=== PATIENT | female | born 1980 | race Caucasian/White ===

== ENCOUNTER 2016-12-13 01:28 | Emergency (ER) | payer OTHER ==
[2016-12-13 02:27] LABS: BASO % 0.6 % (0.0-1.0); EOS # 0.2 K/mm3 (0.0-0.50); EOS % 2.8 % (0.0-3.0); LARGE UNSTAINED CELL # 0.2 K/mm3 (0.0-0.4); LARGE UNSTAINED CELL % 2.3 % (0.0-4.0); LYMPH # 2.4 K/mm3 (1.5-4.5); MEAN CORPUSCULAR HEMOGLOBIN 29.7 pg (27.0-33.0); MEAN CORPUSCULAR HGB CONC 34.1 g/dl (32.0-36.5); MONO # 0.4 K/mm3 (0.0-0.8); NEUTROPHILS # 4.3 K/mm3 (1.8-7.7); NEUTROPHILS % 57.4 % (36.0-66.0); PLATELET COUNT, AUTOMATED 229 k/mm3 (150-450); RED CELL DISTRIBUTION WIDTH 12.4 % (11.5-14.5); WHITE BLOOD COUNT 7.4 K/mm3 (4.0-10.0)
[2016-12-13 02:30] LABS: INR 0.88
[2016-12-13 02:41] LABS: ANION GAP 8 MEQ/L (8-16); BLOOD UREA NITROGEN 13 MG/DL (7-18); CARBON DIOXIDE LEVEL 31 MEQ/L (21-32); CHLORIDE LEVEL 103 MEQ/L (98-107); CREATININE FOR GFR 0.78 MG/DL (0.55-1.02); GLOMERULAR FILTRATION RATE > 60.0 (>60); GLUCOSE, FASTING 118 MG/DL (70-105); POTASSIUM SERUM 3.7 MEQ/L (3.5-5.1); SODIUM LEVEL 142 MEQ/L (136-145); T UPTAKE 33 % (30-39); THYROXINE (T4) 14.3 UG/DL (4.5-12.0)
--- NOTE | 2016-12-13 03:16 | REP ---
Clinical: Chest pain . Comparison: None . Findings: The mediastinum and cardiac silhouette are stable and within normal limits for portable technique. The lung rodriguez are clear without acute consolidation, effusion, or pneumothorax. Skeletal structures are intact. Impression: No acute cardiopulmonary process or focal consolidation. Signed by Peterson Bullard MD 12/13/2016 03:08 A
--- NOTE | 2016-12-13 04:00 | REPUSA ---
CLINICAL HISTORY: Syncope. TECHNIQUE: Multiple axial brain CT scan sections were obtained from base to vertex without contrast a dministration. COMMENTS: The study shows normal configuration of sella turcica. There are no intra or extra-axial collections. There is no mass effect or midline shift. There is no evidence of hematoma formation. No hydrocephal us is present. No abnormal calcifications are noted. No significant abnormalities are seen either in the posterior fossa or supratentorial compartment. The sinuses and mastoid air cells are patent. IMPRESSION: No evidence of acute intracranial pathology. Thank you for your kind referral of this patient.
[2016-12-13] MEDS ORDERED: ISOVUE-370 76% 100ML VIAL (Q9967) As Ordered ONE (04:15)
--- NOTE | 2016-12-13 05:10 | REPUSA ---
CLINICAL HISTORY: Dyspnea, exclude PE. TECHNIQUE: Multiple incremental axial, coronal and oblique images are obtained from the thoracic inle t to the upper abdomen. Intravenous contrast material was administered as per pulmonary embolism prot ocol. COMMENTS: There is excellent opacification of pulmonary arterial system without evidence for pulmonary embolism . Aorta is of normal caliber without evidence for dissection or aneurysm. There is no evidence of pleural or parenchymal mass. Multifocal air trapping in the lungs with associ ated groundglass densities. There are no pleural effusions. There is no evidence of hilar or mediasti nal lymphadenopathy. The heart and great vessels are within normal limits. Images of the upper abdomen demonstrate no evidence of adrenal mass. The bony structures are free of lytic or blastic lesions. Enhancing lesions of the right hepatic lobe the largest measuring 4.5 cm. IMPRESSION: No evidence for pulmonary embolism. Multifocal air trapping in the lungs with associated groundglass densities. Thank you for your kind referral of this patient.
--- NOTE | 2016-12-13 06:04 | EDDOCDS ---
Nurse's Notes [facility] Name: Rebecca Yu Age: 36 yrs Sex: Female : 1980 Arrival Date: 12/13/2016 Time: 01:28 Bed 18 Private MD: Diagnosis: Volume depletion;Orthostatic hypotension Presentation: 12/13 01:39 Presenting complaint: Patient states: that prior to arrival when getting up to use the cz bathroom had a syncopal episode and had chest heaviness. Adult Sepsis Screening: The patient does not have new or worsening altered mentation. Patient's respiratory rate is less than 22. Systolic blood pressure is greater than 100. Patient has a qSOFA score of 0- Negative Sepsis Screen. Suicide/Homicide risk assessment- the patient denies having any suicidal and/or homicidal ideations and does not present with any other emotional, behavioral or mental health complaints. Status: Patient is not a director service or dependent. Transition of care: patient was not received from another setting of care. 01:39 Acuity: SHARONDA Level 2 01:39 Method Of Arrival: Walkin/Carried/Asstd Triage Assessment: 06:03 Pt Declines HIV testing. 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 levothyroxine 125 mcg Oral cap - PMHx: Hypothyroidism; - PSHx: Cesearean Section; Cholecystectomy; Thyroidectomy; - Social history: Smoking status: Patient states was never smoker of tobacco. No barriers to communication noted, The patient speaks fluent Kinyarwanda, Speaks appropriately for age. - Family history: Not pertinent. - : The pt / caregiver states he / she is not on anticoagulants. Home medication list is obtained from the patient. - Exposure Risk Screening:: None identified. Screenin:38 Screening information is obtained from the patient. Fall risk: No risks identified. jp6 Assistance ADL's: requires no assistance with activities of daily living. Abuse/DV Screen: The patient / caregiver reports he/she is: not in a situation that causes fear, pain or injury. Nutritional screening: No deficits noted. Advance Directives: Currently, there is no health care proxy. There is no active DNR order. There is no living will. home support is adequate. Assessment: 02:00 General: Appears in no apparent distress, uncomfortable, well developed, well jp6 nourished, Behavior is appropriate for age, cooperative, Reports left chest sided heaviness. Pain: Denies pain. 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 EENT: No deficits noted. Cardiovascular: Capillary refill < 3 seconds Heart tones S1 S2 Edema is absent. Rhythm is sinus tachycardia No ectopy. Respiratory: Airway is patent Respiratory effort is even, unlabored, Respiratory pattern is regular, symmetrical, Breath sounds are clear bilaterally. GI: No deficits noted. : No deficits noted. Derm: Skin is pink, warm & dry. Musculoskeletal: No deficits noted. 03:00 Reassessment: Patient appears in no apparent distress at this time. Patient states jp6 feeling better. General: Appears in no apparent distress, Behavior is appropriate for age, cooperative. Pain: Denies pain. Neurological: No deficits noted. EENT: No deficits noted. Cardiovascular: Capillary refill < 3 seconds Rhythm is sinus tachycardia No ectopy. Respiratory: Airway is patent Respiratory effort is even, unlabored, Respiratory pattern is regular, symmetrical. GI: No deficits noted. : No deficits noted. Derm: Skin is pink, warm & dry. 04:00 Reassessment: Patient states feeling better. Neurological: Level of Consciousness is jp6 awake, alert, Oriented to person, place, time. Cardiovascular: Rhythm is sinus rhythm No ectopy. Respiratory: Airway is patent Respiratory effort is even, unlabored, Respiratory pattern is regular, symmetrical. Derm: Skin is pink, warm & dry. 05:24 Reassessment: Patient appears in no apparent distress at this time. Patient states jp6 feeling better. Neurological: No deficits noted. Level of Consciousness is awake, alert, Oriented to person, place, time. Cardiovascular: Rhythm is sinus rhythm No ectopy. Respiratory: Airway is patent Respiratory effort is even, unlabored, Respiratory pattern is regular, symmetrical. Derm: Skin is pink, warm & dry. Vital Signs: 01:36 BP 173 / 91 (auto/); jp6 01:38 Pulse 92 MON; Pulse Ox 99% ; jp6 01:44 BP 173 / 91; Pulse 97; Resp 16; Pulse Ox 99% on R/A; Weight 90.72 kg; Height 5 ft. 9 cz in. (175.26 cm); 01:49 Temp 99(TE); cz 01:51 BP 154 / 76 (auto/); jp6 01:52 Pulse 96 MON; Pulse Ox 98% ; jp6 02:06 BP 161 / 85 (auto/); jp6 02:07 Pulse 96 MON; Pulse Ox 98% ; jp6 02:21 BP 154 / 85 (auto/); jp6 02:22 Pulse 98 MON; Pulse Ox 98% ; jp6 03:02 BP 149 / 86 LA Supine (auto/reg); Pulse 101; Pulse Ox 99% ; jp6 03:05 BP 159 / 95 LA Sitting (auto/reg); Pulse 101; jp6 03:08 BP 163 / 94 LA Standing (auto/reg); Pulse 121; jp6 03:21 BP 149 / 82 (auto/); jp6 03:22 Pulse 96 MON; Pulse Ox 98% ; jp6 03:36 BP 131 / 77 (auto/); jp6 03:37 Pulse 94 MON; Pulse Ox 98% ; jp6 03:51 BP 172 / 89 (auto/); jp6 03:51 Pulse 100 MON; Pulse Ox 97% ; jp6 04:06 BP 154 / 85 (auto/); jp6 04:07 Pulse 94 MON; Pulse Ox 97% ; jp6 04:21 BP 158 / 92 (auto/); jp6 04:24 Pulse 100 MON; Pulse Ox 97% ; jp6 04:36 BP 143 / 76 (auto/); jp6 04:40 Pulse 102 MON; Pulse Ox 99% ; jp6 04:51 BP 145 / 78 (auto/); jp6 04:52 Pulse 102 MON; Pulse Ox 99% ; jp6 05:06 BP 145 / 81 (auto/); jp6 05:07 Pulse 104 MON; Pulse Ox 99% ; jp6 05:53 BP 139 / 82; Pulse 100; Resp 18; Temp 99.3; Pulse Ox 99% on R/A; Pain 0/10; melvin 01:44 Body Mass Index 29.53 (90.72 kg, 175.26 cm) cz Vitals: 06:02 Glucose Measurement not ordered. Log In Time: December 13, 2016 at 01:36. jp6 ED Course: 01:29 Patient visited by Aggie Tompkins Reg. hs2 01:29 Patient moved to Waiting hs2 01:33 Patient moved to 18 sls1 01:34 Farnaz Barillas,RN is Primary Nurse. jp6 01:38 The patient / caregiver is instructed regarding the plan of care and ED course. Cardiac jp6 monitor on. Pulse ox on. NIBP on. 01:38 Inserted saline lock: 20 gauge in left forearm and blood collected. No procedures done jp6 that require assistance. 01:41 Triage Initiated cz 02:00 EKG done. (by ED staff). Reviewed by Herrera Parisi DO. melvin 02:05 Herrera Parisi DO is Attending Physician. cs11 02:05 Patient visited by Herrera Parisi DO. cs11 03:08 Patient visited by Lashawn Monterroso PCA. melvin 03:19 Chest, 1 View Returned. EDMS 03:51 Patient name changed from Rebecca\S\M\S\White\S\ to Rebecca\S\Mindy\S\White. EDMS 03:51 [facility] Payment Agreement was scanned into [employer] and attached to record. slh 04:10 Patient visited by Lashawn Monterroso PCA. melvin 04:20 CT Head Without Contrast Returned. EDMS 05:15 Patient visited by Lashawn Monterroso PCA. melvin 05:21 CT Chest Angio R/O PE Returned. EDMS 05:54 Patient visited by Lashawn Monterroso PCA. melvin Administered Medications: 03:18 Drug: NS 0.9% 1000 ml [sodium chloride 0.9 % intravenous solution] Route: IV; Rate: jp6 bolus; Site: right forearm; Intake: 06:01 PO: 0.00ml; IV: 1000.00ml (NS); Total: 1000.00ml. jp6 Output: 06:01 Urine: 600.00ml (Voided); Total: 600.00ml. jp6 Order Results: Lab Order: CBC with Diff; SPEC'M 12/13/16 01:49 Test: WHITE BLOOD COUNT; Value: 7.4; Range: 4.0-10.0; Units: K/mm3; Status: F Test: RED BLOOD COUNT; Value: 5.19; Range: 4.00-5.40; Units: M/mm3; Status: F Test: HEMOGLOBIN; Value: 15.4; Range: 12.0-16.0; Units: g/dl; Status: F Test: HEMATOCRIT; Value: 45.2; Range: 36.0-47.0; Units: %; Status: F Test: MEAN CORPUSCULAR VOLUME; Value: 87.0; Range: 80.0-96.0; Units: fl; Status: F Test: MEAN CORPUSCULAR HEMOGLOBIN; Value: 29.7; Range: 27.0-33.0; Units: pg; Status: F Test: MEAN CORPUSCULAR HGB CONC; Value: 34.1; Range: 32.0-36.5; Units: g/dl; Status: F Test: RED CELL DISTRIBUTION WIDTH; Value: 12.4; Range: 11.5-14.5; Units: %; Status: F Test: PLATELET COUNT, AUTOMATED; Value: 229; Range: 150-450; Units: k/mm3; Status: F Test: NEUTROPHILS %; Value: 57.4; Range: 36.0-66.0; Units: %; Status: F Test: LYMPH %; Value: 32.0; Range: 24.0-44.0; Units: %; Status: F Test: MONO %; Value: 5.0; Range: 0.0-5.0; Units: %; Status: F Test: EOS %; Value: 2.8; Range: 0.0-3.0; Units: %; Status: F Test: BASO %; Value: 0.6; Range: 0.0-1.0; Units: %; Status: F Test: LARGE UNSTAINED CELL %; Value: 2.3; Range: 0.0-4.0; Units: %; Status: F Test: NEUTROPHILS #; Value: 4.3; Range: 1.8-7.7; Units: K/mm3; Status: F Test: LYMPH #; Value: 2.4; Range: 1.5-4.5; Units: K/mm3; Status: F Test: MONO #; Value: 0.4; Range: 0.0-0.8; Units: K/mm3; Status: F Test: EOS #; Value: 0.2; Range: 0.0-0.50; Units: K/mm3; Status: F Test: BASO #; Value: 0.0; Range: 0.0-0.2; Units: K/mm3; Status: F Test: LARGE UNSTAINED CELL #; Value: 0.2; Range: 0.0-0.4; Units: K/mm3; Status: F Lab Order: MED Profile; SPEC'M 12/13/16 01:49 Test: GLUCOSE, FASTING; Value: 118; Range: 70-105; Abnormal: Above high normal; Units: MG/DL; Status: F Test: BLOOD UREA NITROGEN; Value: 13; Range: 7-18; Units: MG/DL; Status: F Test: CREATININE FOR GFR; Value: 0.78; Range: 0.55-1.02; Units: MG/DL; Status: F Test: GLOMERULAR FILTRATION RATE; Value: > 60.0; Range: >60; Status: F Test: SODIUM LEVEL; Value: 142; Range: 136-145; Units: MEQ/L; Status: F Test: POTASSIUM SERUM; Value: 3.7; Range: 3.5-5.1; Units: MEQ/L; Status: F Test: CHLORIDE LEVEL; Value: 103; Range: 98-107; Units: MEQ/L; Status: F Test: CARBON DIOXIDE LEVEL; Value: 31; Range: 21-32; Units: MEQ/L; Status: F Test: ANION GAP; Value: 8; Range: 8-16; Units: MEQ/L; Status: F Test: CALCIUM LEVEL; Value: 9.0; Range: 8.5-10.1; Units: MG/DL; Status: F Test Note: ; Units are mL/min/1.73 m2 Chronic Kidney Disease Staging per NKF: Stage I & II GFR >=60 Normal to Mildly Decreased Stage III GFR 30-59 Moderately Decreased Stage IV GFR 15-29 Severely Decreased Stage V GFR <15 Very Little GFR Left ESRD GFR <15 on 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 MARKETING ASSOCIATE Lab Order: Cardiac Marker Panel; SPEC'M 12/13/16 01:49 Test: CPK CREATINE PHOSPHOKINASE; Value: 81; Range: 26-192; Units: U/L; Status: F Test: CK-MB VALUE MASS; Value: 1.0; Range: 0.0-3.6; Units: NG/ML; Status: F Test: MB/CK RELATIVE INDEX; Value: 1.23; Range: < OR =4; Status: F Test: TROPONIN I; Value: < 0.02; Range: < 0.10; Units: NG/ML; Status: F Test Note: ; DIAGNOSIS CRITERIA MMB ng/ml Relative Index (RI) NON-AMI < or = 5 N/A SANCHEZ ZONE > 5 < or = 4 AMI > 5 > 4 Lab Order: Pt & Aptt; SPEC'M 12/13/16 01:49 Test: PROTHROMBIN TIME; Value: 12.0; Range: 12.3-14.5; Abnormal: Below low normal; Units: SECONDS; Status: F Test: INR; Value: 0.88; Status: F Test: PARTIAL THROMBOPLASTIN TIME; Value: 27.0; Range: 26.6-37.1; Units: SECONDS; Status: F Test Note: ; THERAPUTIC HUMAN INR VALUES INDICATIONS NORMAL RANGES PROPHYLAXIS/TREATMENT OF: VENOUS THROMBOSIS 2.0-3.0 PULMONARY EMBOLISM 2.0-3.0 PREVENTION OF SYSTEMIC EMBOLISM FROM: TISSUE HEART VALVES 2.0-3.0 ACUTE MYOCARDIAL INFARCTION 2.0-3.0 VALVULAR HEART DISEASE 2.0-3.0 ATRIAL FIBRILLATION 2.0-3.0 MECHANICAL VALVES(HIGH RISK) 2.5-3.5 RECURRENT MYOCARDIAL INFARCTION 2.5-3.5 Lab Order: Thyroid Profile; SPEC'M 12/13/16 01:49 Test: T UPTAKE; Value: 33; Range: 30-39; Units: %; Status: F Test: THYROXINE (T4); Value: 14.3; Range: 4.5-12.0; Abnormal: Above high normal; Units: UG/DL; Status: F Test: FREE THYROXINE INDEX; Value: 4.7; Range: 1.3-4.8; Units: %; Status: F Test: THYROID STIMULATING HORMONE; Value: 0.541; Range: 0.358-3.740; Units: uIU/ML; Status: F Radiology Order: Chest, 1 View Test: Chest, 1 View REASON FOR EXAMINATION: Chest Pain; Clinical: Chest pain .; ; Comparison: None .; ; Findings:; The mediastinum and cardiac silhouette are stable and within normal limits for; portable technique. The lung rodriguez are clear without acute consolidation,; effusion, or pneumothorax. Skeletal structures are intact.; ; Impression:; No acute cardiopulmonary process or focal consolidation.; ; ; Signed by; Peterson Bullard MD 12/13/2016 03:08 A; Radiology Order: CT Head Without Contrast Test: CT Head Without Contrast REASON FOR EXAMINATION: Syncope; ; CLINICAL HISTORY: Syncope.; TECHNIQUE: Multiple axial brain CT scan sections were obtained from base to vertex without contrast a; dministration.; COMMENTS:; The study shows normal configuration of sella turcica. There are no intra or extra-axial collections.; There is no mass effect or midline shift. There is no evidence of hematoma formation. No hydrocephal; us is present. No abnormal calcifications are noted.; No significant abnormalities are seen either in the posterior fossa or supratentorial compartment.; The sinuses and mastoid air cells are patent.; IMPRESSION:; No evidence of acute intracranial pathology.; Thank you for your kind referral of this patient.; ; Radiology Order: CT Chest Angio R/O PE Test: CT Chest Angio R/O PE REASON FOR EXAMINATION: Chest Pain; ; CLINICAL HISTORY: Dyspnea, exclude PE.; TECHNIQUE: Multiple incremental axial, coronal and oblique images are obtained from the thoracic inle; t to the upper abdomen. Intravenous contrast material was administered as per pulmonary embolism prot; ocol.; COMMENTS:; There is excellent opacification of pulmonary arterial system without evidence for pulmonary embolism; . Aorta is of normal caliber without evidence for dissection or aneurysm.; There is no evidence of pleural or parenchymal mass. Multifocal air trapping in the lungs with associ; ated groundglass densities. There are no pleural effusions. There is no evidence of hilar or mediasti; nal lymphadenopathy. The heart and great vessels are within normal limits.; Images of the upper abdomen demonstrate no evidence of adrenal mass.; The bony structures are free of lytic or blastic lesions.; Enhancing lesions of the right hepatic lobe the largest measuring 4.5 cm.; IMPRESSION:; No evidence for pulmonary embolism.; Multifocal air trapping in the lungs with associated groundglass densities.; Thank you for your kind referral of this patient.; ; Outcome: 05:50 Discharge ordered by Provider. cs11 06:01 Discharge Assessment: Patient awake, alert and oriented x 3. No cognitive and/or jp6 functional deficits noted. Patient verbalized understanding of disposition instructions. patient administered narcotics - no. The following High Risk Discharge criteria are identified: None. Discharged to home ambulatory, with family. Condition: improved. Discharge instructions given to patient, Instructed on discharge instructions, follow up and referral plans. Demonstrated understanding of instructions, Pt was receptive of discharge instructions/ teaching. CT Study completed. Property :Personal belongings accompany Pt. 06:03 Patient left the ED. jp6 Signatures: Dispatcher [employer] EDMS Fortunato Cantu, RN RN Lashawn Gómez, BREAD ROOM HAND BREAD ROOM HAND Millie Villalobos, RN RN sls1 Herrera Parisi, DO cs11 Erin Mcdaniel slAggie Olivo, Reg Reg hs2 Farnaz Barillas,RN RN jp6 MTDD
--- NOTE | 2016-12-13 06:04 | EDDOCDS ---
Physician Documentation [facility] Name: Rebecca Yu Age: 36 yrs Sex: Female : 1980 Arrival Date: 12/13/2016 Time: 01:28 Bed 18 Private MD: Disposition: 12/13/16 05:50 Discharged to Home/Self Care. Impression: Volume depletion, Orthostatic hypotension. - Condition is Stable. - Medication Reconciliation, Local Pharmacy Hours form. - Follow up: Private Physician; When: Call to arrange an appointment; Reason: Recheck today's complaints. - Problem is new. - Symptoms have improved. Historical: - Allergies: No known drug Allergies; - Home Meds: 1. levothyroxine 125 mcg Oral cap - PMHx: Hypothyroidism; - PSHx: Cesearean Section; Cholecystectomy; Thyroidectomy; - Social history: Smoking status: Patient states was never smoker of tobacco. No barriers to communication noted, The patient speaks fluent Venezuelan, Speaks appropriately for age. - Family history: Not pertinent. - : The pt / caregiver states he / she is not on anticoagulants. Home medication list is obtained from the patient. - Exposure Risk Screening:: None identified. 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 9 in. (175.26 cm); 01:49 Temp 99(TE); cz 01:51 BP 154 / 76 (auto/); jp6 01:52 Pulse 96 MON; Pulse Ox 98% ; jp6 02:06 BP 161 / 85 (auto/); jp6 02:07 Pulse 96 MON; Pulse Ox 98% ; jp6 02:21 BP 154 / 85 (auto/); jp6 02:22 Pulse 98 MON; Pulse Ox 98% ; jp6 03:02 BP 149 / 86 LA Supine (auto/reg); Pulse 101; Pulse Ox 99% ; jp6 03:05 BP 159 / 95 LA Sitting (auto/reg); Pulse 101; jp6 03:08 BP 163 / 94 LA Standing (auto/reg); Pulse 121; jp6 03:21 BP 149 / 82 (auto/); jp6 03:22 Pulse 96 MON; Pulse Ox 98% ; jp6 03:36 BP 131 / 77 (auto/); jp6 03:37 Pulse 94 MON; Pulse Ox 98% ; jp6 03:51 BP 172 / 89 (auto/); jp6 03:51 Pulse 100 MON; Pulse Ox 97% ; jp6 04:06 BP 154 / 85 (auto/); jp6 04:07 Pulse 94 MON; Pulse Ox 97% ; jp6 04:21 BP 158 / 92 (auto/); jp6 04:24 Pulse 100 MON; Pulse Ox 97% ; jp6 04:36 BP 143 / 76 (auto/); jp6 04:40 Pulse 102 MON; Pulse Ox 99% ; jp6 04:51 BP 145 / 78 (auto/); jp6 04:52 Pulse 102 MON; Pulse Ox 99% ; jp6 05:06 BP 145 / 81 (auto/); jp6 05:07 Pulse 104 MON; Pulse Ox 99% ; jp6 05:53 BP 139 / 82; Pulse 100; Resp 18; Temp 99.3; Pulse Ox 99% on R/A; Pain 0/10; melvin 01:44 Body Mass Index 29.53 (90.72 kg, 175.26 cm) cz MDM: 01:50 ECG WITH READING ER PHYS+CARDIAG ordered. EDMS 02:19 Orthostatic VS ordered. cs11 02:19 CBC with Diff Ordered. EDMS 02:19 MED Profile Ordered. EDMS 02:19 Cardiac Marker Panel Ordered. EDMS 02:19 Pt & Aptt Ordered. EDMS 02:19 Thyroid Profile Ordered. EDMS 02:20 Chest, 1 View Ordered. EDMS 02:20 CT Head Without Contrast Ordered. EDMS 03:13 NS 0.9% 1000 ml IV at bolus once ordered. cs11 03:14 MED Profile Reviewed. cs11 03:14 Pt & Aptt Reviewed. cs11 03:14 Thyroid Profile Reviewed. cs11 03:14 CBC with Diff Reviewed. cs11 03:14 Cardiac Marker Panel Reviewed. cs11 03:18 Financial registration complete. [facility] 03:51 [facility] Payment Agreement was scanned into [employer] and attached to record. [facility] 03:52 Chest, 1 View Reviewed. cs11 03:53 CT Chest Angio R/O PE Ordered. EDMS 05:47 CT Head Without Contrast Reviewed. cs11 05:47 CT Chest Angio R/O PE Reviewed. cs11 Administered Medications: 03:18 Drug: NS 0.9% 1000 ml [sodium chloride 0.9 % intravenous solution] Route: IV; Rate: jp6 bolus; Site: right forearm; Signatures: Dispatcher [employer] EDMT Fortunato Cantu RN RN cz Schiff, Craig, DO cs11 Erin Mcdaniel Jessica, RN RN jp6 The chart was reviewed and I authenticate all verbal orders and agree with the evaluation and treatment provided.Attachments: 03:51 [facility] Payment Agreement [facility] MTDD
--- NOTE | 2016-12-13 13:00 | ECGEPIP ---
Stationary ECG Study [facility] - ED Test Date: 2016-12-13 Pat Name: BEN TORREZ Department: Room: - Gender: F Service Dismantler: PatriciaB: 1980 Requested By: TAVON NUNEZ Order Number: [id number] Reading MD: Julisa Collazo Measurements Intervals Mathias Rate: 92 P: 42 MS: 185 QRS: 32 QRSD: 104 T: 19 QT: 334 QTc: 414 Interpretive Statements SINUS RHYTHM NO PRIOR FOR COMPARISON Electronically Signed On 12-13-2016 13:00:00 EST by Julisa Collazo
--- NOTE | 2016-12-15 07:04 | EDDOCDS ---
Physician Documentation [facility] Name: Rebecca Yu Age: 36 yrs Sex: Female : 1980 Arrival Date: 12/13/2016 Time: 01:28 Bed 18 Private MD: Disposition: 12/13/16 05:50 Discharged to Home/Self Care. Impression: Volume depletion, Orthostatic hypotension. - Condition is Stable. - Medication Reconciliation, Local Pharmacy Hours form. - Follow up: Private Physician; When: Call to arrange an appointment; Reason: Recheck today's complaints. - Problem is new. - Symptoms have improved. Historical: - Allergies: No known drug Allergies; - Home Meds: 1. levothyroxine 125 mcg Oral cap - PMHx: Hypothyroidism; - PSHx: Cesearean Section; Cholecystectomy; Thyroidectomy; - Social history: Smoking status: Patient states was never smoker of tobacco. No barriers to communication noted, The patient speaks fluent [place], Speaks appropriately for age. - Family history: Not pertinent. - : The pt / caregiver states he / she is not on anticoagulants. Home medication list is obtained from the patient. - Exposure Risk Screening:: None identified. 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 9 in. (175.26 cm); 01:49 Temp 99(TE); cz 01:51 BP 154 / 76 (auto/); jp6 01:52 Pulse 96 MON; Pulse Ox 98% ; jp6 02:06 BP 161 / 85 (auto/); jp6 02:07 Pulse 96 MON; Pulse Ox 98% ; jp6 02:21 BP 154 / 85 (auto/); jp6 02:22 Pulse 98 MON; Pulse Ox 98% ; jp6 03:02 BP 149 / 86 LA Supine (auto/reg); Pulse 101; Pulse Ox 99% ; jp6 03:05 BP 159 / 95 LA Sitting (auto/reg); Pulse 101; jp6 03:08 BP 163 / 94 LA Standing (auto/reg); Pulse 121; jp6 03:21 BP 149 / 82 (auto/); jp6 03:22 Pulse 96 MON; Pulse Ox 98% ; jp6 03:36 BP 131 / 77 (auto/); jp6 03:37 Pulse 94 MON; Pulse Ox 98% ; jp6 03:51 BP 172 / 89 (auto/); jp6 03:51 Pulse 100 MON; Pulse Ox 97% ; jp6 04:06 BP 154 / 85 (auto/); jp6 04:07 Pulse 94 MON; Pulse Ox 97% ; jp6 04:21 BP 158 / 92 (auto/); jp6 04:24 Pulse 100 MON; Pulse Ox 97% ; jp6 04:36 BP 143 / 76 (auto/); jp6 04:40 Pulse 102 MON; Pulse Ox 99% ; jp6 04:51 BP 145 / 78 (auto/); jp6 04:52 Pulse 102 MON; Pulse Ox 99% ; jp6 05:06 BP 145 / 81 (auto/); jp6 05:07 Pulse 104 MON; Pulse Ox 99% ; jp6 05:53 BP 139 / 82; Pulse 100; Resp 18; Temp 99.3; Pulse Ox 99% on R/A; Pain 0/10; melvin 01:44 Body Mass Index 29.53 (90.72 kg, 175.26 cm) cz MDM: 01:50 ECG WITH READING ER PHYS+CARDIAG ordered. EDMS 02:19 Orthostatic VS ordered. cs11 02:19 CBC with Diff Ordered. EDMS 02:19 MED Profile Ordered. EDMS 02:19 Cardiac Marker Panel Ordered. EDMS 02:19 Pt & Aptt Ordered. EDMS 02:19 Thyroid Profile Ordered. EDMS 02:20 Chest, 1 View Ordered. EDMS 02:20 CT Head Without Contrast Ordered. EDMS 03:13 NS 0.9% 1000 ml IV at bolus once ordered. cs11 03:14 MED Profile Reviewed. cs11 03:14 Pt & Aptt Reviewed. cs11 03:14 Thyroid Profile Reviewed. cs11 03:14 CBC with Diff Reviewed. cs11 03:14 Cardiac Marker Panel Reviewed. cs11 03:18 Financial registration complete. [facility] 03:51 [facility] was scanned into [employer] and attached to record. [facility] 03:52 Chest, 1 View Reviewed. cs11 03:53 CT Chest Angio R/O PE Ordered. EDMS 05:47 CT Head Without Contrast Reviewed. cs11 05:47 CT Chest Angio R/O PE Reviewed. [facility] 14:56 T-Sheet-- Draft Copy was scanned into [employer] and attached to record. gb 14:57 ECG/EKG was scanned into [employer] and attached to record. gb 14:57 Radiology Report was scanned into [employer] and attached to record. gb 12/14 12:44 Radiology Report was scanned into [employer] and attached to record. gb Administered Medications: 12/13 03:18 Drug: NS 0.9% 1000 ml [sodium chloride 0.9 % intravenous solution] Route: IV; Rate: jp6 bolus; Site: right forearm; Signatures: Dispatcher [employer] EDMS Fortunato Cantu, SHELLI RN Kiki Mckeon, Reg Reg gb Herrera Parisi, DO DO cs11 Erin Mcdaniel Farnaz Brown RN RN jp6 The chart was reviewed and I authenticate all verbal orders and agree with the evaluation and treatment provided.Attachments: 03:51 [facility] Payment Agreement [facility] 14:56 T-Sheet-- Draft Copy gb 14:57 ECG/EKG Chart Complete MTDD
--- NOTE | 2016-12-15 07:04 | EDDOCDS ---
Physician Documentation [facility] Name: Rebecca Yu Age: 36 yrs Sex: Female : 1980 Arrival Date: 12/13/2016 Time: 01:28 Bed 18 Private MD: Disposition: 12/13/16 05:50 Discharged to Home/Self Care. Impression: Volume depletion, Orthostatic hypotension. - Condition is Stable. - Medication Reconciliation, Local Pharmacy Hours form. - Follow up: Private Physician; When: Call to arrange an appointment; Reason: Recheck today's complaints. - Problem is new. - Symptoms have improved. Historical: - Allergies: No known drug Allergies; - Home Meds: 1. levothyroxine 125 mcg Oral cap - PMHx: Hypothyroidism; - PSHx: Cesearean Section; Cholecystectomy; Thyroidectomy; - Social history: Smoking status: Patient states was never smoker of tobacco. No barriers to communication noted, The patient speaks fluent Russian, Speaks appropriately for age. - Family history: Not pertinent. - : The pt / caregiver states he / she is not on anticoagulants. Home medication list is obtained from the patient. - Exposure Risk Screening:: None identified. 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 9 in. (175.26 cm); 01:49 Temp 99(TE); cz 01:51 BP 154 / 76 (auto/); jp6 01:52 Pulse 96 MON; Pulse Ox 98% ; jp6 02:06 BP 161 / 85 (auto/); jp6 02:07 Pulse 96 MON; Pulse Ox 98% ; jp6 02:21 BP 154 / 85 (auto/); jp6 02:22 Pulse 98 MON; Pulse Ox 98% ; jp6 03:02 BP 149 / 86 LA Supine (auto/reg); Pulse 101; Pulse Ox 99% ; jp6 03:05 BP 159 / 95 LA Sitting (auto/reg); Pulse 101; jp6 03:08 BP 163 / 94 LA Standing (auto/reg); Pulse 121; jp6 03:21 BP 149 / 82 (auto/); jp6 03:22 Pulse 96 MON; Pulse Ox 98% ; jp6 03:36 BP 131 / 77 (auto/); jp6 03:37 Pulse 94 MON; Pulse Ox 98% ; jp6 03:51 BP 172 / 89 (auto/); jp6 03:51 Pulse 100 MON; Pulse Ox 97% ; jp6 04:06 BP 154 / 85 (auto/); jp6 04:07 Pulse 94 MON; Pulse Ox 97% ; jp6 04:21 BP 158 / 92 (auto/); jp6 04:24 Pulse 100 MON; Pulse Ox 97% ; jp6 04:36 BP 143 / 76 (auto/); jp6 04:40 Pulse 102 MON; Pulse Ox 99% ; jp6 04:51 BP 145 / 78 (auto/); jp6 04:52 Pulse 102 MON; Pulse Ox 99% ; jp6 05:06 BP 145 / 81 (auto/); jp6 05:07 Pulse 104 MON; Pulse Ox 99% ; jp6 05:53 BP 139 / 82; Pulse 100; Resp 18; Temp 99.3; Pulse Ox 99% on R/A; Pain 0/10; melvin 01:44 Body Mass Index 29.53 (90.72 kg, 175.26 cm) cz MDM: 01:50 ECG WITH READING ER PHYS+CARDIAG ordered. EDMS 02:19 Orthostatic VS ordered. cs11 02:19 CBC with Diff Ordered. EDMS 02:19 MED Profile Ordered. EDMS 02:19 Cardiac Marker Panel Ordered. EDMS 02:19 Pt & Aptt Ordered. EDMS 02:19 Thyroid Profile Ordered. EDMS 02:20 Chest, 1 View Ordered. EDMS 02:20 CT Head Without Contrast Ordered. EDMS 03:13 NS 0.9% 1000 ml IV at bolus once ordered. cs11 03:14 MED Profile Reviewed. cs11 03:14 Pt & Aptt Reviewed. cs11 03:14 Thyroid Profile Reviewed. cs11 03:14 CBC with Diff Reviewed. cs11 03:14 Cardiac Marker Panel Reviewed. cs11 03:18 Financial registration complete. [facility] 03:51 [facility] [place] was scanned into [employer] and attached to record. [facility] 03:52 Chest, 1 View Reviewed. cs11 03:53 CT Chest Angio R/O PE Ordered. EDMS 05:47 CT Head Without Contrast Reviewed. cs11 05:47 CT Chest Angio R/O PE Reviewed. [facility] 14:56 T-Sheet-- Draft Copy was scanned into [employer] and attached to record. gb 14:57 ECG/EKG was scanned into [employer] and attached to record. gb 14:57 Radiology Report was scanned into [employer] and attached to record. gb 12/14 12:44 Radiology Report was scanned into [employer] and attached to record. gb Administered Medications: 12/13 03:18 Drug: NS 0.9% 1000 ml [sodium chloride 0.9 % intravenous solution] Route: IV; Rate: jp6 bolus; Site: right forearm; Signatures: Dispatcher [employer] EDMS Fortunato Cantu, SHELLI RN Kiki Mckeon, Reg Reg gb Herrera Parisi, DO DO cs11 Erin Mcdaniel Farnaz Brown RN RN jp6 The chart was reviewed and I authenticate all verbal orders and agree with the evaluation and treatment provided.Attachments: 03:51 [facility] Payment Agreement [facility] 14:56 T-Sheet-- Draft Copy gb 14:57 ECG/EKG Chart Complete MTDD
--- NOTE | 2016-12-15 07:04 | EDDOCDS ---
Nurse's Notes [facility] Name: Ben Torrez Age: 36 yrs Sex: Female : 1980 Arrival Date: 12/13/2016 Time: 01:28 Bed 18 Private MD: Diagnosis: Volume depletion;Orthostatic hypotension Presentation: 12/13 01:39 Presenting complaint: Patient states: that prior to arrival when getting up to use the cz bathroom had a syncopal episode and had chest heaviness. Adult Sepsis Screening: The patient does not have new or worsening altered mentation. Patient's respiratory rate is less than 22. Systolic blood pressure is greater than 100. Patient has a qSOFA score of 0- Negative Sepsis Screen. Suicide/Homicide risk assessment- the patient denies having any suicidal and/or homicidal ideations and does not present with any other emotional, behavioral or mental health complaints. Status: Patient is not a press service reader or dependent. Transition of care: patient was not received from another setting of care. 01:39 Acuity: SHARONDA Level 2 01:39 Method Of Arrival: Walkin/Carried/Asstd Triage Assessment: 06:03 Pt Declines HIV testing. 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 levothyroxine 125 mcg Oral cap - PMHx: Hypothyroidism; - PSHx: Cesearean Section; Cholecystectomy; Thyroidectomy; - Social history: Smoking status: Patient states was never smoker of tobacco. No barriers to communication noted, The patient speaks fluent Persian, Speaks appropriately for age. - Family history: Not pertinent. - : The pt / caregiver states he / she is not on anticoagulants. Home medication list is obtained from the patient. - Exposure Risk Screening:: None identified. Screenin:38 Screening information is obtained from the patient. Fall risk: No risks identified. jp6 Assistance ADL's: requires no assistance with activities of daily living. Abuse/DV Screen: The patient / caregiver reports he/she is: not in a situation that causes fear, pain or injury. Nutritional screening: No deficits noted. Advance Directives: Currently, there is no health care proxy. There is no active DNR order. There is no living will. home support is adequate. Assessment: 02:00 General: Appears in no apparent distress, uncomfortable, well developed, well jp6 nourished, Behavior is appropriate for age, cooperative, Reports left chest sided heaviness. Pain: Denies pain. Neurological: Level of Consciousness is awake, alert, Oriented to person, place, time, Senior Accounting Clerk are. EENT: No deficits noted. Cardiovascular: Capillary refill < 3 seconds Heart tones S1 S2 Edema is absent. Rhythm is sinus tachycardia No ectopy. Respiratory: Airway is patent Respiratory effort is even, unlabored, Respiratory pattern is regular, symmetrical, Breath sounds are clear bilaterally. GI: No deficits noted. : No deficits noted. Derm: Skin is pink, warm & dry. Musculoskeletal: No deficits noted. 03:00 Reassessment: Patient appears in no apparent distress at this time. Patient states jp6 feeling better. General: Appears in no apparent distress, Behavior is appropriate for age, cooperative. Pain: Denies pain. Neurological: No deficits noted. EENT: No deficits noted. Cardiovascular: Capillary refill < 3 seconds Rhythm is sinus tachycardia No ectopy. Respiratory: Airway is patent Respiratory effort is even, unlabored, Respiratory pattern is regular, symmetrical. GI: No deficits noted. : No deficits noted. Derm: Skin is pink, warm & dry. 04:00 Reassessment: Patient states feeling better. Neurological: Level of Consciousness is jp6 awake, alert, Oriented to person, place, time. Cardiovascular: Rhythm is sinus rhythm No ectopy. Respiratory: Airway is patent Respiratory effort is even, unlabored, Respiratory pattern is regular, symmetrical. Derm: Skin is pink, warm & dry. 05:24 Reassessment: Patient appears in no apparent distress at this time. Patient states jp6 feeling better. Neurological: No deficits noted. Level of Consciousness is awake, alert, Oriented to person, place, time. Cardiovascular: Rhythm is sinus rhythm No ectopy. Respiratory: Airway is patent Respiratory effort is even, unlabored, Respiratory pattern is regular, symmetrical. Derm: Skin is pink, warm & dry. Vital Signs: 01:36 BP 173 / 91 (auto/); jp6 01:38 Pulse 92 MON; Pulse Ox 99% ; jp6 01:44 BP 173 / 91; Pulse 97; Resp 16; Pulse Ox 99% on R/A; Weight 90.72 kg; Height 5 ft. 9 cz in. (175.26 cm); 01:49 Temp 99(TE); cz 01:51 BP 154 / 76 (auto/); jp6 01:52 Pulse 96 MON; Pulse Ox 98% ; jp6 02:06 BP 161 / 85 (auto/); jp6 02:07 Pulse 96 MON; Pulse Ox 98% ; jp6 02:21 BP 154 / 85 (auto/); jp6 02:22 Pulse 98 MON; Pulse Ox 98% ; jp6 03:02 BP 149 / 86 LA Supine (auto/reg); Pulse 101; Pulse Ox 99% ; jp6 03:05 BP 159 / 95 LA Sitting (auto/reg); Pulse 101; jp6 03:08 BP 163 / 94 LA Standing (auto/reg); Pulse 121; jp6 03:21 BP 149 / 82 (auto/); jp6 03:22 Pulse 96 MON; Pulse Ox 98% ; jp6 03:36 BP 131 / 77 (auto/); jp6 03:37 Pulse 94 MON; Pulse Ox 98% ; jp6 03:51 BP 172 / 89 (auto/); jp6 03:51 Pulse 100 MON; Pulse Ox 97% ; jp6 04:06 BP 154 / 85 (auto/); jp6 04:07 Pulse 94 MON; Pulse Ox 97% ; jp6 04:21 BP 158 / 92 (auto/); jp6 04:24 Pulse 100 MON; Pulse Ox 97% ; jp6 04:36 BP 143 / 76 (auto/); jp6 04:40 Pulse 102 MON; Pulse Ox 99% ; jp6 04:51 BP 145 / 78 (auto/); jp6 04:52 Pulse 102 MON; Pulse Ox 99% ; jp6 05:06 BP 145 / 81 (auto/); jp6 05:07 Pulse 104 MON; Pulse Ox 99% ; jp6 05:53 BP 139 / 82; Pulse 100; Resp 18; Temp 99.3; Pulse Ox 99% on R/A; Pain 0/10; melvin 01:44 Body Mass Index 29.53 (90.72 kg, 175.26 cm) cz Vitals: 06:02 Glucose Measurement not ordered. Log In Time: December 13, 2016 at 01:36. jp6 ED Course: 01:29 Patient visited by Aggie Tompkins Reg. hs2 01:29 Patient moved to Waiting hs2 01:33 Patient moved to 18 [facility] 01:34 Farnaz Barillas,RN is Primary Nurse. jp6 01:38 The patient / caregiver is instructed regarding the plan of care and ED course. Cardiac jp6 monitor on. Pulse ox on. NIBP on. 01:38 Inserted saline lock: 20 gauge in left forearm and blood collected. No procedures done jp6 that require assistance. 01:41 Triage Initiated cz 02:00 EKG done. (by ED staff). Reviewed by Tavon Nunez DO. melvin 02:05 Tavon Nunez DO is Attending Physician. cs11 02:05 Patient visited by Tavon Nunez DO. cs11 03:08 Patient visited by Lashawn Monterroso PCA. melvin 03:19 Chest, 1 View Returned. EDMS 03:51 Patient name changed from Ben\S\M\S\White\S\ to Ben\S\Mindy\S\White. EDMS 03:51 [facility] [place] [facility] [place] Agreement was scanned into [employer] and attached to record. slh 04:10 Patient visited by Lashawn Motnerroso PCA. melvin 04:20 CT Head Without Contrast Returned. EDMS 05:15 Patient visited by Lashawn Monterroso PCA. melvin 05:21 CT Chest Angio R/O PE Returned. EDMS 05:54 Patient visited by Lashawn Monterroso PCA. melvin 13:09 EKG-ADULT Returned. EDMS 14:56 T-Sheet-- Draft Copy was scanned into [employer] and attached to record. gb 14:57 ECG/EKG was scanned into [employer] and attached to record. gb 14:57 Radiology Report was scanned into [employer] and attached to record. gb 12/14 12:44 Radiology Report was scanned into [employer] and attached to record. gb Administered Medications: 12/13 03:18 Drug: NS 0.9% 1000 ml [sodium chloride 0.9 % intravenous solution] Route: IV; Rate: jp6 bolus; Site: right forearm; Intake: 06:01 PO: 0.00ml; IV: 1000.00ml (NS); Total: 1000.00ml. jp6 Output: 06:01 Urine: 600.00ml (Voided); Total: 600.00ml. jp6 Order Results: Lab Order: CBC with Diff; SPEC'M 12/13/16 01:49 Test: WHITE BLOOD COUNT; Value: 7.4; Range: 4.0-10.0; Units: K/mm3; Status: F Test: RED BLOOD COUNT; Value: 5.19; Range: 4.00-5.40; Units: M/mm3; Status: F Test: HEMOGLOBIN; Value: 15.4; Range: 12.0-16.0; Units: g/dl; Status: F Test: HEMATOCRIT; Value: 45.2; Range: 36.0-47.0; Units: %; Status: F Test: MEAN CORPUSCULAR VOLUME; Value: 87.0; Range: 80.0-96.0; Units: fl; Status: F Test: MEAN CORPUSCULAR HEMOGLOBIN; Value: 29.7; Range: 27.0-33.0; Units: pg; Status: F Test: MEAN CORPUSCULAR HGB CONC; Value: 34.1; Range: 32.0-36.5; Units: g/dl; Status: F Test: RED CELL DISTRIBUTION WIDTH; Value: 12.4; Range: 11.5-14.5; Units: %; Status: F Test: PLATELET COUNT, AUTOMATED; Value: 229; Range: 150-450; Units: k/mm3; Status: F Test: NEUTROPHILS %; Value: 57.4; Range: 36.0-66.0; Units: %; Status: F Test: LYMPH %; Value: 32.0; Range: 24.0-44.0; Units: %; Status: F Test: MONO %; Value: 5.0; Range: 0.0-5.0; Units: %; Status: F Test: EOS %; Value: 2.8; Range: 0.0-3.0; Units: %; Status: F Test: BASO %; Value: 0.6; Range: 0.0-1.0; Units: %; Status: F Test: LARGE UNSTAINED CELL %; Value: 2.3; Range: 0.0-4.0; Units: %; Status: F Test: NEUTROPHILS #; Value: 4.3; Range: 1.8-7.7; Units: K/mm3; Status: F Test: LYMPH #; Value: 2.4; Range: 1.5-4.5; Units: K/mm3; Status: F Test: MONO #; Value: 0.4; Range: 0.0-0.8; Units: K/mm3; Status: F Test: EOS #; Value: 0.2; Range: 0.0-0.50; Units: K/mm3; Status: F Test: BASO #; Value: 0.0; Range: 0.0-0.2; Units: K/mm3; Status: F Test: LARGE UNSTAINED CELL #; Value: 0.2; Range: 0.0-0.4; Units: K/mm3; Status: F Lab Order: MED Profile; SPEC'M 12/13/16 01:49 Test: GLUCOSE, FASTING; Value: 118; Range: 70-105; Abnormal: Above high normal; Units: MG/DL; Status: F Test: BLOOD UREA NITROGEN; Value: 13; Range: 7-18; Units: MG/DL; Status: F Test: CREATININE FOR GFR; Value: 0.78; Range: 0.55-1.02; Units: MG/DL; Status: F Test: GLOMERULAR FILTRATION RATE; Value: > 60.0; Range: >60; Status: F Test: SODIUM LEVEL; Value: 142; Range: 136-145; Units: MEQ/L; Status: F Test: POTASSIUM SERUM; Value: 3.7; Range: 3.5-5.1; Units: MEQ/L; Status: F Test: CHLORIDE LEVEL; Value: 103; Range: 98-107; Units: MEQ/L; Status: F Test: CARBON DIOXIDE LEVEL; Value: 31; Range: 21-32; Units: MEQ/L; Status: F Test: ANION GAP; Value: 8; Range: 8-16; Units: MEQ/L; Status: F Test: CALCIUM LEVEL; Value: 9.0; Range: 8.5-10.1; Units: MG/DL; Status: F Test Note: ; Units are mL/min/1.73 m2 Chronic Kidney Disease Staging per NKF: Stage I & II GFR >=60 Normal to Mildly Decreased Stage III GFR 30-59 Moderately Decreased Stage IV GFR 15-29 Severely Decreased Stage V GFR <15 Very Little GFR Left ESRD GFR <15 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 Lab Order: Cardiac Marker Panel; SPEC'M 12/13/16 01:49 Test: CPK CREATINE PHOSPHOKINASE; Value: 81; Range: 26-192; Units: U/L; Status: F Test: CK-MB VALUE MASS; Value: 1.0; Range: 0.0-3.6; Units: NG/ML; Status: F Test: MB/CK RELATIVE INDEX; Value: 1.23; Range: < OR =4; Status: F Test: TROPONIN I; Value: < 0.02; Range: < 0.10; Units: NG/ML; Status: F Test Note: ; DIAGNOSIS CRITERIA MMB ng/ml Relative Index (RI) NON-AMI < or = 5 N/A SANCHEZ ZONE > 5 < or = 4 AMI > 5 > 4 Lab Order: Pt & Aptt; [facility]12/13/16 01:49 Test: PROTHROMBIN TIME; Value: 12.0; Range: 12.3-14.5; Abnormal: Below low normal; Units: SECONDS; Status: F Test: INR; Value: 0.88; Status: F Test: PARTIAL THROMBOPLASTIN TIME; Value: 27.0; Range: 26.6-37.1; Units: SECONDS; Status: F Test Note: ; THERAPUTIC HUMAN INR VALUES INDICATIONS NORMAL RANGES PROPHYLAXIS/TREATMENT OF: VENOUS THROMBOSIS 2.0-3.0 PULMONARY EMBOLISM 2.0-3.0 PREVENTION OF SYSTEMIC EMBOLISM FROM: TISSUE HEART VALVES 2.0-3.0 ACUTE MYOCARDIAL INFARCTION 2.0-3.0 VALVULAR HEART DISEASE 2.0-3.0 ATRIAL FIBRILLATION 2.0-3.0 MECHANICAL VALVES(HIGH RISK) 2.5-3.5 RECURRENT MYOCARDIAL INFARCTION 2.5-3.5 Lab Order: Thyroid Profile; SPEC12/13/16 01:49 Test: T UPTAKE; Value: 33; Range: 30-39; Units: %; Status: F Test: THYROXINE (T4); Value: 14.3; Range: 4.5-12.0; Abnormal: Above high normal; Units: UG/DL; Status: F Test: FREE THYROXINE INDEX; Value: 4.7; Range: 1.3-4.8; Units: %; Status: F Test: THYROID STIMULATING HORMONE; Value: 0.541; Range: 0.358-3.740; Units: uIU/ML; Status: F Radiology Order: EKG-ADULT Test: EKG-ADULT REASON FOR EXAMINATION: Chest Pain; Stationary ECG Study; [facility] - ED; ; Test Date: 2016-12-13; Pat Name: BEN TORREZ Department:; Room: -; Gender: F Caretaker: maria esther; : 1980 Requested By: TAVON NUNEZ; Order Number: [id number] Reading MD: Julisa Collazo; Measurements; Intervals [place]; Rate: 92 P: 42; CO: 185 QRS: 32; QRSD: 104 T: 19; QT: 334; QTc: 414; Interpretive Statements; SINUS RHYTHM; NO PRIOR FOR COMPARISON; Electronically Signed On 12-13-2016 13:00:00 EST by Julisa Collazo; Radiology Order: Chest, 1 View Test: Chest, 1 View REASON FOR EXAMINATION: Chest Pain; Clinical: Chest pain .; ; Comparison: None .; ; Findings:; The mediastinum and cardiac silhouette are stable and within normal limits for; portable technique. The lung rodriguez are clear without acute consolidation,; effusion, or pneumothorax. Skeletal structures are intact.; ; Impression:; No acute cardiopulmonary process or focal consolidation.; ; ; Signed by; Peterson Bullard MD 12/13/2016 03:08 A; Radiology Order: CT Head Without Contrast Test: CT Head Without Contrast REASON FOR EXAMINATION: Syncope; ; CLINICAL HISTORY: Syncope.; TECHNIQUE: Multiple axial brain CT scan sections were obtained from base to vertex without contrast a; dministration.; COMMENTS:; The study shows normal configuration of sella turcica. There are no intra or extra-axial collections.; There is no mass effect or midline shift. There is no evidence of hematoma formation. No hydrocephal; us is present. No abnormal calcifications are noted.; No significant abnormalities are seen either in the posterior fossa or supratentorial compartment.; The sinuses and mastoid air cells are patent.; IMPRESSION:; No evidence of acute intracranial pathology.; Thank you for your kind referral of this patient.; ; Radiology Order: CT Chest Angio R/O PE Test: CT Chest Angio R/O PE REASON FOR EXAMINATION: Chest Pain; ; CLINICAL HISTORY: Dyspnea, exclude PE.; TECHNIQUE: Multiple incremental axial, coronal and oblique images are obtained from the thoracic inle; t to the upper abdomen. Intravenous contrast material was administered as per pulmonary embolism prot; ocol.; COMMENTS:; There is excellent opacification of pulmonary arterial system without evidence for pulmonary embolism; . Aorta is of normal caliber without evidence for dissection or aneurysm.; There is no evidence of pleural or parenchymal mass. Multifocal air trapping in the lungs with associ; ated groundglass densities. There are no pleural effusions. There is no evidence of hilar or mediasti; nal lymphadenopathy. The heart and great vessels are within normal limits.; Images of the upper abdomen demonstrate no evidence of adrenal mass.; The bony structures are free of lytic or blastic lesions.; Enhancing lesions of the right hepatic lobe the largest measuring 4.5 cm.; IMPRESSION:; No evidence for pulmonary embolism.; Multifocal air trapping in the lungs with associated groundglass densities.; Thank you for your kind referral of this patient.; ; Outcome: 05:50 Discharge ordered by Provider. cs11 06:01 Discharge Assessment: Patient awake, alert and oriented x 3. No cognitive and/or jp6 functional deficits noted. Patient verbalized understanding of disposition instructions. patient administered narcotics - no. The following High Risk Discharge criteria are identified: None. Discharged to home ambulatory, with family. Condition: improved. Discharge instructions given to patient, Instructed on discharge instructions, follow up and referral plans. Demonstrated understanding of instructions, Pt was receptive of discharge instructions/ teaching. CT Study completed. Property :Personal belongings accompany Pt. 06:03 Patient left the ED. jp6 Signatures: Dispatcher [employer] EDMS Fortunato Cantu, RN Kiki Peñaloza, Reg Reg gb Kriss, Lashawn, DOWEL PIN WORKER DOWEL PIN WORKER Millie Villalobos, RN RN sls1 Tavon Nunez DO DO cs11 Erin cMdaniel Aggie Olivo, Reg Reg hs2 Farnaz Barillas,SHELLI MARQUES jp6 Chart Complete MTDD
== END 2016-12-13 06:03 | disposition home or self-care (01) ==
LOC: M ED 01:28
DX: E86.9 Volume depletion, unspecified (principal); I95.1 Orthostatic hypotension; E03.9 Hypothyroidism, unspecified; Z79.52 Long term (current) use of systemic steroids
CPT/HCPCS: 36415; 70450; 71010; 71275; 80048; 82550; 82553; 84436; 84443; 84479; 85025; 85610; 85730; 93005; 99285; Q9967

== ENCOUNTER → 2017-01-04 | Outpatient (REF) | payer OTHER ==
[2017-01-04 15:21] LABS: MEAN CORPUSCULAR HEMOGLOBIN 29.5 pg (27.0-33.0); MEAN CORPUSCULAR HGB CONC 33.7 g/dl (32.0-36.5); MEAN CORPUSCULAR VOLUME 87.5 fl (80.0-96.0); RED CELL DISTRIBUTION WIDTH 12.7 % (11.5-14.5); WHITE BLOOD COUNT 5.5 K/mm3 (4.0-10.0)
[2017-01-04 16:00] LABS: ALBUMIN 3.8 GM/DL (3.2-5.2); ALBUMIN/GLOBULIN RATIO 1.27 (1.00-1.93); ALKALINE PHOSPHATASE 52 U/L (45-117); ALT/SGPT 21 U/L (12-78); ANION GAP 8 MEQ/L (8-16); AST/SGOT 11 U/L (15-37); BILIRUBIN,TOTAL 0.5 MG/DL (0.2-1.0); BLOOD UREA NITROGEN 17 MG/DL (7-18); CALCIUM LEVEL 8.6 MG/DL (8.5-10.1); CARBON DIOXIDE LEVEL 30 MEQ/L (21-32); CHLORIDE LEVEL 104 MEQ/L (98-107); CREATININE FOR GFR 0.88 MG/DL (0.55-1.02); GLOMERULAR FILTRATION RATE > 60.0 (>60); GLUCOSE, FASTING 75 MG/DL (70-105); POTASSIUM SERUM 4.5 MEQ/L (3.5-5.1); SODIUM LEVEL 142 MEQ/L (136-145); TOTAL PROTEIN 6.8 GM/DL (6.4-8.2)
== END ==
LOC: M SFHCLACO 08:41
PROVIDERS: ATTEND Physician Assistant
DX: Z00.00 Encounter for general adult medical examination without abnormal findings (principal)

== ENCOUNTER → 2017-04-15 | Outpatient (REF) | payer OTHER | LOC: M SFHCLACO 10:30 | PROVIDERS: ATTEND Physician Assistant | DX: N76.0 Acute vaginitis (principal); B37.3 Candidiasis of vulva and vagina ==

== ENCOUNTER → 2020-02-08 | Outpatient (REF) | payer OTHER | LOC: M LAB REF 17:32 | PROVIDERS: ATTEND Dermatology | DX: D22.62 Melanocytic nevi of left upper limb, including shoulder (principal) ==

== ENCOUNTER → 2021-04-22 | Outpatient (REF) | payer OTHER | LOC: M LAB REF 13:52 | PROVIDERS: ATTEND Dermatology | DX: D22.9 Melanocytic nevi, unspecified (principal) ==

== ENCOUNTER → 2021-09-16 | Outpatient (CLI) | payer OTHER ==
--- NOTE | 2021-09-16 10:10 | REP ---
INDICATION: STRAIN OF MUSC / TENDON RT LEG. COMPARISON: None. TECHNIQUE: 3T multiplanar MRI imaging of the right lower extremity was obtained using various sequences. FINDINGS: Seen between the medial head of the gastrocnemius muscle and the soleus muscle and beginning in the proximal portion of the proximal 1/3 of the lower leg extending inferiorly for 15 cm there is abnormal T2 hyper signal. This T2 hyper signal extends into the mid and inferior aspects of the medial head of the gastrocnemius muscle. The fluid surrounds a barely perceptible plantaris tendon on T2 weighted imaging, however, T1 weighted imaging shows it to have an unremarkable appearing appearance. The remainder of the imaged musculature is within normal limits. The remainder of the imaged flexor and extensor tendons are intact and of normal appearing low signal throughout. There is no abnormal periosteal thickening or signal seen involving the tibia or fibula. The tibial and fibular marrow signal is within normal limits throughout. There is no evidence of a knee joint or ankle joint effusion. IMPRESSION: There is a fluid collection in the superficial part of the posterior compartment of the right lower leg as described above and seen in conjunction with edema within the medial head of the gastrocnemius muscle. This is consistent with muscular strain with likely muscular tear of the medial head of the gastrocnemius muscle. I feel that although fluid surrounds the plantaris tendon it is not directly abnormal as the T1 weighted images indicate that this tendon is intact throughout. <Electronically signed by Roddy Ewing > 09/16/21 [id number]
== END ==
LOC: M PLARAD 07:31
PROVIDERS: ATTEND Physician Assistant Surgical
DX: S86.811A Strain of other muscle(s) and tendon(s) at lower leg level, right leg, initial encounter (principal); X58.XXXA Exposure to other specified factors, initial encounter; Y92.9 Unspecified place or not applicable; Y93.9 Activity, unspecified; Y99.9 Unspecified external cause status

== ENCOUNTER → 2022-01-20 | Outpatient (CLI) | payer OTHER | LOC: M RAD 11:27 | PROVIDERS: ATTEND Nurse Practitioner Family | DX: Z85.850 Personal history of malignant neoplasm of thyroid (principal); Z90.89 Acquired absence of other organs ==

== ENCOUNTER → 2022-05-10 | Outpatient (REF) | LOC: M LAB 11:26 | PROVIDERS: ATTEND Nurse Practitioner Adult Health | DX: Z02.1 Encounter for pre-employment examination (principal) ==

== ENCOUNTER → 2024-03-22 | Outpatient (REF) | payer OTHER ==
[2024-03-22 13:05] LABS: C REACTIVE PROTEIN QUANTITATIV < 0.40 MG/DL (<1.0)
[2024-03-22 13:07] LABS: ALBUMIN 3.8 G/DL (3.2-5.2); ALKALINE PHOSPHATASE 50 U/L (46-116); ALT/SGPT 14 U/L (7.0-40); AST/SGOT 10 U/L (<34); BILIRUBIN,TOTAL 0.8 MG/DL (0.3-1.2); BLOOD UREA NITROGEN 12 MG/DL (9-23); CALCIUM LEVEL 8.6 MG/DL (8.5-10.1); CARBON DIOXIDE LEVEL 28 MMOL/L (20-31); CHLORIDE LEVEL 103 MMOL/L (98-107); CHOLESTEROL LEVEL 216 MG/DL (<200); CHOLESTEROL RISK RATIO 4.12 (<5); CREATININE FOR GFR 0.71 MG/DL (0.55-1.30); GLOMERULAR FILTRATION RATE > 60.0 (>58); GLUCOSE, FASTING 97 MG/DL (60-100); HDL CHOLESTEROL 52.4 MG/DL (>40); HEMATOCRIT 44.3 % (36.0-47.0); HEMOGLOBIN 14.8 g/dl (12.0-15.5); LDL CHOLESTEROL 127.6 MG/DL (<100); MEAN CORPUSCULAR HEMOGLOBIN 29.1 pg (27.0-33.0); MEAN CORPUSCULAR HGB CONC 33.4 g/dl (32.0-36.5); MEAN CORPUSCULAR VOLUME 87.2 fl (80.0-96.0); NON-HDL-C 163.6 MG/DL; PLATELET COUNT, AUTOMATED 257 10^3/uL (150-450); POTASSIUM SERUM 4.3 MMOL/L (3.5-5.1); RED BLOOD COUNT 5.08 10^6/uL (4.00-5.40); SODIUM LEVEL 138 MMOL/L (136-145); THYROID STIMULATING HORMONE 0.958 uIU/ML (0.55-4.78); TOTAL 25(OH) VITAMIN D 27.8 NG/ML (20.0-100.0); TOTAL PROTEIN 6.5 G/DL (5.7-8.2); TRIGLYCERIDES LEVEL 180 MG/DL (<150); WHITE BLOOD COUNT 6.6 10^3/uL (4.0-10.0)
[2024-03-22 13:08] LABS: VITAMIN B12 LEVEL 372 PG/ML (211-911)
[2024-03-22 13:27] LABS: HEMOGLOBIN A1c 5.2 % (4.0-6.0)
== END ==
LOC: M SFHCPLAZ 10:01
PROVIDERS: ATTEND Internal Medicine Hematology
DX: I10 Essential (primary) hypertension (principal)

== ENCOUNTER → 2024-03-27 | Outpatient (REF) | payer OTHER ==
[2024-03-27 13:45] LABS: CREATININE, URINE 154.4 MG/DL
[2024-03-27 13:47] LABS: MAU/CREAT RATIO 2.5 MCG/MG (0.0-30.0)
== END ==
LOC: M SFHCPLAZ 12:46
PROVIDERS: ATTEND Internal Medicine Hematology
DX: I10 Essential (primary) hypertension (principal)

== ENCOUNTER → 2024-07-24 | Outpatient (CLI) | payer OTHER ==
[2024-07-24 13:47] LABS: BASO % 0.5 % (0.0-1.0); EOS # 0.1 10^3/uL (0.0-0.5); HEMOGLOBIN 14.3 g/dl (12.0-15.5); LYMPH # 1.9 10^3/uL (1.5-5.0); LYMPH % 28.6 % (24.0-44.0); MEAN CORPUSCULAR HEMOGLOBIN 30.1 pg (27.0-33.0); MEAN CORPUSCULAR VOLUME 88.4 fl (80.0-96.0); MONO # 0.5 10^3/uL (0.0-0.8); MONO % 7.2 % (2.0-8.0); NEUTROPHILS % 61.4 % (36.0-66.0); PLATELET COUNT, AUTOMATED 242 10^3/uL (150-450); RED BLOOD COUNT 4.75 10^6/uL (4.00-5.40); WHITE BLOOD COUNT 6.5 10^3/uL (4.0-10.0)
[2024-07-24 14:11] LABS: C REACTIVE PROTEIN QUANTITATIV < 0.40 MG/DL (<1.0)
[2024-07-24 14:12] LABS: ALBUMIN 3.8 G/DL (3.2-5.2); ALKALINE PHOSPHATASE 54 U/L (46-116); ALT/SGPT 14 U/L (7.0-40); AST/SGOT 11 U/L (<34); BILIRUBIN,TOTAL 0.8 MG/DL (0.3-1.2); BLOOD UREA NITROGEN 11 MG/DL (9-23); CARBON DIOXIDE LEVEL 28 MMOL/L (20-31); CHLORIDE LEVEL 106 MMOL/L (98-107); CHOLESTEROL LEVEL 181 MG/DL (<200); CHOLESTEROL RISK RATIO 3.59 (<5); CREATININE FOR GFR 0.69 MG/DL (0.55-1.30); GLOMERULAR FILTRATION RATE > 60.0 (>58); GLUCOSE, FASTING 96 MG/DL (60-100); HDL CHOLESTEROL 50.4 MG/DL (>40); NON-HDL-C 130.6 MG/DL; POTASSIUM SERUM 4.1 MMOL/L (3.5-5.1); SODIUM LEVEL 136 MMOL/L (136-145); TOTAL PROTEIN 6.6 G/DL (5.7-8.2); TRIGLYCERIDES LEVEL 138 MG/DL (<150)
[2024-07-24 14:14] LABS: THYROID STIMULATING HORMONE 0.944 uIU/ML (0.55-4.78); TOTAL 25(OH) VITAMIN D 39.7 NG/ML (20.0-100.0); VITAMIN B12 LEVEL 416 PG/ML (211-911)
[2024-07-24 14:15] LABS: FREE T4 1.28 NG/DL (0.89-1.76)
[2024-07-24 14:22] LABS: HEMOGLOBIN A1c 5.3 % (4.0-6.0)
== END ==
LOC: M PLALAB 09:24
PROVIDERS: ATTEND Internal Medicine Hematology
DX: I10 Essential (primary) hypertension (principal)

== ENCOUNTER → 2025-01-23 | Outpatient (REF) | payer OTHER | LOC: M SFHCPLAZ 12:11 | PROVIDERS: ATTEND Student in an Organized Health Care Education/Training Program | DX: Z53.9 Procedure and treatment not carried out, unspecified reason (principal) ==

== ENCOUNTER → 2025-10-17 | Outpatient (REF) | payer OTHER | LOC: M SFHCPLAZ 11:08 | PROVIDERS: ATTEND Family Medicine | DX: Z53.9 Procedure and treatment not carried out, unspecified reason (principal) ==